=== PATIENT | female | born 1970 | race Two or more races ===

== ENCOUNTER 2025-07-08 07:25 | Day surgery (SDC) | payer OTHER ==
[2025-07-03 11:23] LABS: Hematocrit 33.7 % (36.0-46.0); Hemoglobin 11.6 g/dL (12.2-16.2); Mean Corpuscular Hemoglobin 28.5 pg (28.0-32.0); Mean Corpuscular Volume 82.5 fL (80.0-100.0); Nucleated Red Blood Cells % 0.0 %
[2025-07-03 11:41] LABS: Urine Protein, UAD Negative (Negative)
[2025-07-03 11:42] LABS: INR 0.96 (0.9-1.15); Partial Thromboplastin Time 23.6 SEC (24.5-34.5); Prothrombin Time 10.2 sec (9.3-11.8)
[2025-07-03 11:56] LABS: Alanine Aminotransferase 17 U/L (7-40); Albumin 4.4 g/dL (3.2-4.8); Alkaline Phosphatase 58 U/L (46-116); Anion Gap 8 (5-15); BUN/Creatinine Ratio 9.2 (10.0-20.0); Bilirubin, Total 0.5 mg/dL (0.2-1.0); Calcium 9.4 mg/dL (8.7-10.4); Carbon Dioxide 29 mmol/L (20-31); Glucose 84 mg/dL (74-106); Potassium 4.0 mmol/L (3.5-5.1); Total Protein 6.9 g/dL (5.7-8.2)
[2025-07-03 11:58] LABS: Blood Urea Nitrogen 7 mg/dL (9-23); Chloride 98 mmol/L (98-107); Sodium 135 mmol/L (136-145)
[~2025-07-08] VITALS: Ht 165.1 cm; Wt 63.5 kg
[~2025-07-08 07:25] MED LIST: ATEN50TA80 PO; CYCL-837 PO; HYDR1TAB97 PO; LANS30CA57 PO; LOSA100T25 PO; PRAS1CAP PO; PROG200C21 PO; [UNRECOGNIZED DRUG - CODE] BU
[2025-07-08] MEDS ORDERED: ONDANSETRON HCL 4 MG/2 ML VIAL ONE (07:38)
[2025-07-08] MEDS ORDERED: LIDOCAINE 1% INJ PF 5ML AMP ONE (07:38)
[2025-07-08] MEDS ORDERED: GLYCOPYRROLATE 0.2 MG/ML 1ML VIAL ONE (07:38)
[2025-07-08] MEDS ORDERED: KETOROLAC TROMETH 30 MG/ML 1ML VIAL ONE (07:38)
[2025-07-08] MEDS ORDERED: PROPOFOL 10 MG/ML 20 ML IV ONE (07:39)
[2025-07-08] MEDS ORDERED: ceFAZolin 2 GM/D5W50ml 50 ML IV ONE (07:43)
[2025-07-08] MEDS: GABAPENTIN 300 MG CAP PO ONE (08:30)
[2025-07-08] MEDS: CELECOXIB 100 MG CAP PO ONE (08:30)
[2025-07-08] MEDS: ACETAMINOPHEN IV 1000 MG/100ML (10MG/ML) IV ONE ×2 (08:30→10:29)
[2025-07-08] MEDS ORDERED: ACETAMINOPHEN IV 100 ML IV ONE ×2 (08:33→10:31)
[2025-07-08] MEDS ORDERED: GABAPENTIN 300 MG CAP ONE (08:33)
[2025-07-08] MEDS ORDERED: CELECOXIB 100 MG CAP ONE (08:33)
[2025-07-08] MEDS: VANCOMYCIN HCL 1000 MG VL ONE (09:01)
[2025-07-08] MEDS: BUPIVACAINE 0.5% P/F INJ 10 ML VIAL ONE (09:02)
[2025-07-08] MEDS: MORPHINE SULFATE 10 MG/ML INJ 1ML SDV IV ONE (09:02)
[2025-07-08] MEDS: LIDOCAINE W/ EPINEPHRINE 2% INJ 20ML VIAL ONE (09:02)
[2025-07-08 10:06] VITALS: PULSE 69; RESP 19; TEMP 98.3
[2025-07-08] MEDS ORDERED: fentaNYL CITRATE 100 MCG/2 ML VL IV PRN (10:15)
[2025-07-08] MEDS ORDERED: NALOXONE HCL 0.4 MG/ML VIAL IV PRN (10:15)
[2025-07-08] MEDS ORDERED: hydrALAZINE HCL 20 MG/ML VL IV PRN (10:15)
[2025-07-08] MEDS ORDERED: FLUMAZENIL 0.1 MG/ML INJ 10ML MDV IV PRN (10:15)
[2025-07-08] MEDS ORDERED: ONDANSETRON HCL 4 MG/2 ML VIAL IV PRN (10:15)
--- NOTE | 2025-07-08 11:00 | DVH ---
C-ARM FLUOROSCOPY: PROCEDURE: SI surgery FLUOROSCOPY TIME: 414.7 sec DAP: 340.25 mgy FINDINGS: Spot intraoperative C arm radiographs demonstrating SI surgery . IMPRESSION: Please refer to surgical report for detailed findings.
--- NOTE | 2025-07-08 11:00 | DVH ---
C-ARM FLUOROSCOPY: PROCEDURE: SI surgery FLUOROSCOPY TIME: 414.7 sec DAP: 340.25 mgy FINDINGS: Spot intraoperative C arm radiographs demonstrating SI surgery . IMPRESSION: Please refer to surgical report for detailed findings.
[2025-07-08] MEDS: HYDROmorphone HCL 2 MG/ML VL/or syr IV PRN (11:05)
[2025-07-08 11:21] VITALS: BP 138/80; PULSE 71; RESP 12; O2SAT 95
== END 2025-07-08 11:36 | disposition home or self-care (01) ==
LOC: SUR 07:25
PROVIDERS: ATTEND Anesthesiology Pain Medicine
DX: M53.3 Sacrococcygeal disorders, not elsewhere classified (principal); M46.1 Sacroiliitis, not elsewhere classified; M53.2X8 Spinal instabilities, sacral and sacrococcygeal region; M53.88 Other specified dorsopathies, sacral and sacrococcygeal region; I10 Essential (primary) hypertension; G89.4 Chronic pain syndrome; M47.818 Spondylosis without myelopathy or radiculopathy, sacral and sacrococcygeal region; Z87.891 Personal history of nicotine dependence; Z88.1 Allergy status to other antibiotic agents; Z88.2 Allergy status to sulfonamides; Z91.040 Latex allergy status; F32.A Depression, unspecified; Z79.899 Other long term (current) drug therapy; Z98.890 Other specified postprocedural states
CPT/HCPCS: 27279; 36415; 80053; 81001; 85025; 85610; 85730; A4215; J0690; J1100; J1171; J1885; J2270; J2405; J2704; J3373; J3490; 76000; J0131